=== PATIENT | female | born 1975 | race Caucasian/White ===

== ENCOUNTER → 2023-09-18 17:15 | Outpatient (REF) | payer OTHER, SELFPAY | LOC: HWWDC 17:15 | PROVIDERS: ATTENDING PHYSICIAN Obstetrics & Gynecology Gynecology; FAMILY PHYSICIAN Family Medicine | DX: Z12.31 Encounter for screening mammogram for malignant neoplasm of breast (principal) | CPT/HCPCS: 77063; 77067 ==

== ENCOUNTER 2023-10-13 14:34 | Emergency (ER) | payer OTHER, SELFPAY ==
[2023-10-13 14:42] VITALS: BP 139/95
[2023-10-13 14:59] LABS: % Basophils 0.5 % (0-2); % Eosinophils 0.2 % (0-6); % Lymphocytes 33.1 % (20.5-51.1); % Monocytes 8.9 % (1.7-9.3); % Neutrophils 57.3 % (42.2-75.2); Absolute Lymphocytes 1.8 10^3/uL (1.2-3.4); Absolute Monocytes 0.5 10^3/uL (0.1-0.6); Absolute Neutrophils 3.2 10^3/uL (1.4-6.5); Hematocrit 38.7 % (37.0-47.0); Hemoglobin 13.5 g/dL (12.0-16.0); Mean Corp Hgb Conc. 34.9 g/dL (33.0-37.0); Mean Corpuscular Hgb 27.3 pg (27.0-31.0); Mean Corpuscular Volume 78.2 fL (81.0-99.0); Nucleated Red Blood Cells % 0 %; Platelet Count 282 10^3/uL (130-400); Red Blood Cell Count 4.95 10^6/uL (4.20-5.40); White Blood Cell Count 5.5 10^3/uL (4.8-10.8)
[2023-10-13 15:16] LABS: ALT (SGPT) 116 U/L (0-35); AST (SGOT) 116 U/L (14-36); Albumin 4.9 g/dl (3.5-5.0); Alkaline Phosphatase 133 U/L (38-126); Blood Urea Nitrogen 11 mg/dl (7-17); Calcium 9.5 mg/dl (8.4-10.2); Carbon Dioxide 30 mmol/L (22-30); Chloride 96 mmol/L (98-107); Glucose 96 mg/dl (70-99); Lipase 161 U/L (23-300); Potassium 3.3 mmol/L (3.5-5.1); Sodium 133 mmol/L (135-145); Total Bilirubin 0.7 mg/dl (0.2-1.3); Total Protein 8.3 g/dl (6.3-8.2); eGFR > 60.00
[2023-10-13] MEDS: OMNIPAQUE 50 ML PO (17:05)
[2023-10-13] MEDS: NSS 1000 IV (17:06)
[2023-10-13 17:33] LABS: HCG, Serum Qualitative Screen Negative
--- NOTE | 2023-10-13 17:59 | ED.GENMED ---
History of Present Illness
General
Chief Complaint: Abdominal Pain
Source: patient
Exam Limitations: none
Time Seen by Provider: 10/13/23 16:12
Nursing documentation reviewed up to this point in time: agreed with
Travel History
Have you had any contact with someone who has COVID-19?: No
Do you have any symptoms of coronavirus? Fever > 100 degrees, chills, cough, shortness of breath, sore throat, loss of taste or smell, muscle aches, or headache?: No
History of Present Illness
History of Present Illness:
Patient to ED with complaint of bloating, constipation, abdominal pain x 1 week. States she has had intermittent fever and chills since Friday. Denies any n/v. Last BM was this AM, normal. Poor appetite. Taking tylenol and IBU for pain with
good control. Brought self to ED for eval
Past History
Past History
ED Past Medical History: GERD, HTN, Hypercholesterolemia and Psychiatric (Anxiety)
Social History
Tobacco: Non-smoker
Alcohol: None
Review of Systems
Review of Systems
Allergies reviewed?: Yes
All Other Systems: ROS reviewed and negative except as documented in HPI and ROS
Constitutional: Reports no symptoms
EENT: Reports no symptoms
Respiratory: Reports no symptoms
Cardiac: Reports no symptoms
ABD/GI: Reports abdominal pain (Lower abdominal pain), constipated and other (bloating)
: Reports no symptoms
Musculoskeletal: Reports no symptoms
Skin: Reports no symptoms
Neurological: Reports no symptoms
Psychiatric: Reports no symptoms
Phy Exam
General Physical Exam
General Presentation: well appearing and no apparent distress
General age: appears stated age
General Skin: warm and dry
General Habitus: normal
General Mental: alert
General Hydration: appears well hydrated
Gastrointestinal Exam
Gastrointestinal Exam: normal bowel sounds, soft, no organomegaly, non distended and no cva tenderness
Palpation: generalized: Moderate tenderness
Musculoskeletal Exam
Musculoskeletal Exam: full ROM and neuro vasc intact
Skin Exam
Skin Exam: normal color, warm/dry and no rash
Psychiatric Exam
Psychiatric Exam: normal mood/affect
Course
Orders/Labs/Results
Orders:
Orders
10/13/23 14:51
Complete Blood Count/With Diff Urgent
Comprehensive Metabolic Panel Urgent
HCG, Serum Qualitative Screen Urgent
Comment: HCG SERUM QUALITATIVE ADDED ON BY FLOOR 4:20PM 10-13-23
Lipase Urgent
10/13/23 16:20
CT Abd/pel W Iv And Oral Contr Urgent
Comment:
Reason For Exam: lower abd. pain
Iohexol [Omnipaque] See Protocol PO NOW STA
10/13/23 16:21
Add On- LAB Urgent
Tests Added?: HCG serum qualitative
10/13/23 16:33
0.9% Sodium Chloride 1000 ml [Nss] 1,000 ml IV BOLUS
10/13/23 18:11
Urinalysis Reflex To Culture Urgent
Date Specimen was Collected: 10/13/23
Time Specimen was Collected: 17:52
Urine Microscopic Reflex Cult Urgent
Abnormal Lab Results
10/13/23 10/13/23
14:51 18:11
MCV 78.2 L fL
(81.0-99.0)
Sodium 133 L mmol/L
(135-145)
Potassium 3.3 L mmol/L
(3.5-5.1)
Chloride 96 L mmol/L
(98-107)
AST 116 H U/L
(14-36)
ALT 116 H U/L
(0-35)
Alkaline Phosphatase 133 H U/L
(38-126)
Total Protein 8.3 H g/dl
(6.3-8.2)
Ur Occult Blood Reflex 2+ A
(Negative)
Urine RBC 3-6 A /HPF
(0-2)
10/13/23 14:51
10/13/23 14:51
Vital Signs
Initial and Last Documented VS:
Initial Vital Signs
Temp Pulse Resp BP Pulse Ox
100.1 F 91 18 139/95 100
10/13/23 14:42 10/13/23 14:42 10/13/23 14:42 10/13/23 14:42 10/13/23 14:42
Last Documented Vital Signs
Temp Pulse Resp BP Pulse Ox
100.1 F 95 16 142/95 97
10/13/23 14:42 10/13/23 20:57 10/13/23 20:57 10/13/23 20:57 10/13/23 20:57
*Radiology
Radiology exam reviewed: radiology read reviewed
*Pulse Oximetry
Patient hypoxic: no
*Critical Care Note
Total Time (30-74mins, 75-104mins- exclusive of procedures): Not Applicable
Update Note
Update Note:
Labs, CT results reviewed with patient. No findings to explain her symptoms. She is discharged home and will follow closely with PCP. Given instructions on s/s to return to ED and she is agreeable to plan.
ED Attending Note
-
Portions of this chart may have been created with voice recognition software.� Occasional wrong word or��sound alike� substitutions may have occurred due to the inherent limitations of voice recognition software.
Discharge Plan
Departure
Patient Disposition: Home (Routine Discharge)
Date of Disposition: 10/13/23
Time of Disposition: 20:49
Patient with high blood pressure during this ER visit?: No
Condition: Good
Covid-19: Not Applicable
Discharge Problem:
Abdominal pain
Instructions: Abdominal Pain
Prescriptions:
No Action
red yeast rice 600 MG tablet
600 mg PO DAILY
buspirone 5 MG tablet
5 mg PO BID
amlodipine 2.5 MG tablet
2.5 mg PO HS
alprazolam 0.5 MG tablet
0.5 mg PO HS PRN (Reason: anxiety)
famotidine 20 MG tablet
1 tab PO DAILY
spironolacton-hydrochlorothiaz 1 TABLET tablet
1 tab PO NOW
Referrals:
Aura Kebede MD [Family Provider] - Call in 1-3 days for appt
Activity Restrictions/Additional Instructions:
Please have your liver enzymes rechecked in 1-2 weeks. Return to the emergency department immediately for any changes in/worsening of your symptoms.
Interventions
Interventions:
*Risk Screen - Suicide Last Done: 10/13/23 14:42
*General Assessment Last Done: 10/13/23 14:42
*Neglect/Abuse Screening Last Done: 10/13/23 14:42
ED- Fall Risk Assessment Last Done: 10/13/23 18:03
*ED COVID-19 Vaccine History Last Done: 10/13/23 14:42
*Nursing Disposition Last Done: 10/13/23 20:59
BX-Exfcly-Qfhdzjrwla Assessment Last Done: 10/13/23 18:03
Discharge Date and Time
Discharge Date/Time: 10/13/23 21:00
Print Language: SLOVENIAN
[2023-10-13 18:19] LABS: Urine Albumin Negative (Neg - Trace); Urine Bilirubin Negative (Negative); Urine Character Clear (Clear); Urine Color Yellow; Urine Glucose Negative (Negative); Urine Ketone Negative (Negative); Urine Leukocyte Negative (Negative); Urine Nitrite Negative (Negative); Urine Occult Blood 2+ (Negative); Urine Specific Gravity 1.005 (<1.030); Urine Urobilinogen Negative (Neg - 1+); Urine pH 6.5 (5.0-9.0)
[2023-10-13 18:28] LABS: Urine White Cell 0-2 /HPF (0-5)
[2023-10-13 20:57] VITALS: BP 142/95
== END 2023-10-13 21:00 | disposition home or self-care (01) ==
LOC: EMR 14:34
PROVIDERS: Emergency Medicine; Nurse Practitioner; EMERGENCY PHYSICIAN Emergency Medicine; FAMILY PHYSICIAN Family Medicine
DX: R10.9 Unspecified abdominal pain (principal)
CPT/HCPCS: 99284; 96360; 74177; 80053; 81003; 81015; 83690; 84703; 85025; Q9967

== ENCOUNTER → 2024-01-15 12:51 | Outpatient (REF) | payer OTHER, SELFPAY | LOC: HWRAD 12:51 | PROVIDERS: ATTENDING PHYSICIAN Obstetrics & Gynecology Gynecology; FAMILY PHYSICIAN Family Medicine | DX: N83.209 Unspecified ovarian cyst, unspecified side (principal) | CPT/HCPCS: 76830; 76856 ==

== ENCOUNTER → 2024-09-20 15:15 | Outpatient (REF) | payer OTHER, SELFPAY | LOC: HWWDC 15:15 | PROVIDERS: ATTENDING PHYSICIAN Obstetrics & Gynecology Gynecology; FAMILY PHYSICIAN Family Medicine | DX: Z12.31 Encounter for screening mammogram for malignant neoplasm of breast (principal) | CPT/HCPCS: 77063; 77067 ==

== ENCOUNTER → 2024-10-14 12:39 | Outpatient (REF) | payer OTHER, SELFPAY | LOC: HWRAD 12:39 | PROVIDERS: ATTENDING PHYSICIAN Obstetrics & Gynecology Gynecology; FAMILY PHYSICIAN Family Medicine | DX: N83.209 Unspecified ovarian cyst, unspecified side (principal) | CPT/HCPCS: 76830; 76856 ==